=== PATIENT | male | born 1990 | race Hispanic/Latino ===

== ENCOUNTER 2019-11-09 13:56 | Emergency (ER) | payer SELFPAY ==
[2019-11-09] MEDS ORDERED: LIDOCAINE HCL 1% 20 ML VIAL ONE (14:17)
[2019-11-09] MEDS ORDERED: TETANUS/DIPHTHERIA TOXOID [ADULT] 0.5 ML VIAL IM ONE (14:22)
== END 2019-11-09 15:27 | disposition home or self-care (01) ==
LOC: EDH 13:56
DX: S51.811A Laceration without foreign body of right forearm, initial encounter (principal); Z72.0 Tobacco use; X58.XXXA Exposure to other specified factors, initial encounter; Y93.H2 Activity, gardening and landscaping; Y92.096 Garden or yard of other non-institutional residence as the place of occurrence of the external cause; Y99.8 Other external cause status
CPT/HCPCS: 12002; 90471; 90714